=== PATIENT | male | born 1980 ===

== ENCOUNTER 2018-03-08 06:45 | Emergency (ER) | payer OTHER ==
[2018-03-08 07:15] VITALS: PULSE 69; RESP 18; TEMP 98.5
[2018-03-08] MEDS ORDERED: Sodium Chloride 0.9% 1,000 ML IV STA (07:36)
--- NOTE | 2018-03-08 07:42 | ED PDOC ---
HPI: Headache Time Seen by Provider: 03/08/18 07:32 Chief Complaint (Nursing): Headache Chief Complaint (Provider): Headache History Per: Patient History/Exam Limitations: no limitations Onset/Duration Of Symptoms: Days (x2 days) Current Symptoms Are (Timing): Still Present Associated Symptoms: Photophobia, Nausea Additional Complaint(s): Fracisco Mendez is a 37 year old male with a past medical history of migraines, who presents to the emergency department complaining of a frontal headache, associated with nausea and photophobia, onset x2 days. Patient denies feeling any trauma, fever or any neck stiffness. PMD: no provider Past Medical History Reviewed: Historical Data, Nursing Documentation, Vital Signs Vital Signs: Last Vital Signs Temp 98.5 F 03/08/18 07:10 Pulse 69 03/08/18 07:10 Resp 18 03/08/18 07:10 BP 128/79 03/08/18 07:25 Pulse Ox 99 03/08/18 07:10 - Medical History PMH: Migraine - Surgical History Surgical History: No Surg Hx - Family History Family History: States: Unknown Family Hx - Home Medications Home Medications: Ambulatory Orders Medication Instructions Recorded Acetaminophen/Butalbital/Caf 1 tab PO Q8 #10 tab 03/08/18 [Fioricet] - Allergies Allergies/Adverse Reactions: Allergies Allergy/AdvReac Type Severity Reaction Status Date / Time No Known Allergies Allergy Verified 03/08/18 07:15 Review of Systems ROS Statement: Except As Marked, All Systems Reviewed And Found Negative Constitutional: Negative for: Fever Gastrointestinal: Positive for: Nausea Musculoskeletal: Negative for: Neck Pain, Other (neck stiffness) Neurological: Positive for: Headache, Other (photophobia ) Physical Exam - Reviewed Nursing Documentation Reviewed: Yes Vital Signs Reviewed: Yes - Physical Exam Appears: Positive for: Non-toxic Head Exam: Positive for: ATRAUMATIC, NORMOCEPHALIC Skin: Positive for: Normal Color, Warm, Dry Eye Exam: Positive for: EOMI, Normal appearance, PERRL ENT: Positive for: Normal ENT Inspection Neck: Positive for: Normal, Painless ROM ((-) neck stiffness; (-) meningeal signs), Supple Cardiovascular/Chest: Positive for: Regular Rate, Rhythm. Negative for: Murmur Respiratory: Positive for: Normal Breath Sounds. Negative for: Respiratory Distress Gastrointestinal/Abdominal: Positive for: Normal Exam, Soft. Negative for: Tenderness Back: Positive for: Normal Inspection. Negative for: L CVA Tenderness, R CVA Tenderness, Vertebral Tenderness Extremity: Positive for: Normal ROM. Negative for: Pedal Edema, Deformity Neurologic/Psych: Positive for: Alert, Oriented (x3). Negative for: Motor/Sensory Deficits - ECG O2 Sat by Pulse Oximetry: 99 (RA) Pulse Ox Interpretation: Normal - Progress Re-evaluation Time: 11:45 Condition: Improved Medical Decision Making Medical Decision Makin Impression: Headache and considering migraines. Plan: Given that patient has not had previous work up with CT, will order a CT head and treat with regular fluids, Reglan and Toradol. --CT head without contrast --Toradol 30 mg IVP --Reglan 10 mg IVP --Sodium chloride 1,[address] FINDINGS: HEMORRHAGE: No intracranial hemorrhage. BRAIN: No mass effect or edema. No atrophy or chronic microvascular ischemic changes. VENTRICLES: Unremarkable. No hydrocephalus. CALVARIUM: Unremarkable. PARANASAL SINUSES: Unremarkable as visualized. No significant inflammatory changes. MASTOID AIR CELLS: Unremarkable as visualized. No inflammatory changes. OTHER FINDINGS: None. IMPRESSION: No evidence of acute intracranial hemorrhage intracranial collection mass effect or midline shift. Scribe Attestation: Documented by Shravan Jasmine, acting as a scribe for Omar Arevalo MD. Provider Scribe Attestation: All medical record entries made by the Scribe were at my direction and personally dictated by me. I have reviewed the chart and agree that the record accurately reflects my personal performance of the history, physical exam, medical decision making, and the department course for this patient. I have also personally directed, reviewed, and agree with the discharge instructions and disposition. Disposition - Clinical Impression Clinical Impression: Migraine - Patient ED Disposition Is Patient to be Admitted: No - Disposition Referrals: Miladys Alarcon MD [Medical Doctor] - Disposition: Routine/Home Disposition Time: 11:46 Condition: FAIR Prescriptions: Acetaminophen/Butalbital/Caf [Fioricet] 1 tab PO Q8 #10 tab Instructions: Migraine Headache (DC) Forms: [facility] (Slovenian) Print Language: WELSH
--- NOTE | 2018-03-08 08:55 | CT ---
Date of service: 03/08/2018 PROCEDURE: CT HEAD WITHOUT CONTRAST. HISTORY: r/o bleed COMPARISON: None available. TECHNIQUE: Axial computed tomography images were obtained through the head/brain without intravenous contrast. Radiation dose: Total exam DLP = 890.98 mGy-cm. This CT exam was performed using one or more of the following dose reduction techniques: Automated exposure control, adjustment of the mA and/or kV according to patient size, and/or use of iterative reconstruction technique. FINDINGS: HEMORRHAGE: No intracranial hemorrhage. BRAIN: No mass effect or edema. No atrophy or chronic microvascular ischemic changes. VENTRICLES: Unremarkable. No hydrocephalus. CALVARIUM: Unremarkable. PARANASAL SINUSES: Unremarkable as visualized. No significant inflammatory changes. MASTOID AIR CELLS: Unremarkable as visualized. No inflammatory changes. OTHER FINDINGS: None. IMPRESSION: No evidence of acute intracranial hemorrhage intracranial collection mass effect or midline shift.
[2018-03-08] MEDS ORDERED: Apap-Butalbital-Caffeine 325-50-40mg Tab PO STA (11:37)
[2018-03-08 15:27] VITALS: BP 140/80; O2SAT 100
== END 2018-03-08 11:47 | disposition home or self-care (01) ==
LOC: H.ER 06:45
DX: G43.909 Migraine, unspecified, not intractable, without status migrainosus (principal)
CPT/HCPCS: 70450; 82948; 96374; 96375; 99285; J1885; J2765; J7030